=== PATIENT | male | born 1965 | race Two or more races ===

== ENCOUNTER 2019-01-25 06:35 | Day surgery (SDC) | payer OTHER ==
[~2019-01-25 06:35] MED LIST: CLONAZEPAM2 MG PO; DOXEPIN HCL150 MG PO; QUETIAPINE FUM100 MG PO; SPIRIVA PO; XANA PO; [UNRECOGNIZED DRUG - OTHER] PO
== END 2019-01-25 18:50 | disposition home or self-care (01) ==
LOC: CIR.AMB 06:35
DX: K64.8 Other hemorrhoids (principal); K64.4 Residual hemorrhoidal skin tags